=== PATIENT | female | born 1965 | race Caucasian/White ===

== ENCOUNTER 2017-04-17 22:39 | Emergency (ER) | payer OTHER ==
[~2017-04-17] VITALS: Ht 157.5 cm; Wt 89.0 kg
[~2017-04-17 22:39] MED LIST: CYCL5TAB PO
[2017-04-17 22:44] VITALS: BP 130/66; PULSE 83; RESP 18; TEMP 98.4; O2SAT 96
[2017-04-17 23:15] LABS: BILIRUBIN, URINE NEG (NEG); BLOOD, URINE NEG (NEG); GLUCOSE,URINE NEG (NEG); KETONE, URINE NEG (NEG); NITRITE,URINE NEG (NEG); PH, URINE 5.5 (5.0-8.5); URINE COLOR YELLOW (YELLW/STRAW); URINE LEUKOCYTE ESTERASE TRACE (NEG)
--- NOTE | 2017-04-17 23:29 | RADRPT ---
EXAM DATE/TIME: 04/17/2017 23:03 [place] COMPARISON: No previous studies available for comparison. INDICATIONS : Right flank and posterior, inferior rib pain post fall. MEDICAL HISTORY : None. SURGICAL HISTORY : None. ENCOUNTER: Initial ACUITY: 1 day PAIN SCORE: 10/10 LOCATION: Right chest FINDINGS: Multiple views of the right ribs were performed. There is no evidence of displaced fracture. No ladarius tructive lesions or areas of periosteal thickening are seen. Expiratory view of the chest is negativ e for pneumothorax. The mediastinal structures are midline. CONCLUSION: Negative right rib series. Kory Naylor MD on April 17, 2017 at 23:28 Board Certified Radiologist. This report was verified electronically.
[2017-04-17 23:33] LABS: SQUAMOUS EPITHELIAL CELL URINE 0-5 /hpf (0-5)
[2017-04-17 23:34] LABS: MUCUS URINE OCC /lpf (OCC)
[2017-04-17] MEDS ORDERED: INSU1INJ14 SQ (23:38)
[2017-04-17] MEDS ORDERED: METO-309 PO (23:38)
[2017-04-17] MEDS ORDERED: ASPI1CHW4 CHEW (23:38)
[2017-04-17] MEDS ORDERED: ATOR10TA15 PO (23:38)
[2017-04-17] MEDS ORDERED: HUMALOG SQ (23:38)
[2017-04-18] MEDS ORDERED: TRAM50 PO (00:09)
--- NOTE | 2017-04-18 00:09 | PD ---
HPI . Fall Chief Complaint: Fall Time Seen by Provider: 22:50 Travel History International Travel<30 days: No Contact w/Intl Traveler<30days: No Traveled to known affect area: No History of Present Illness HPI 51-year-old female status post fall, patient was standing on top of the chair with wheels trying to change a light bulb, chair fell out, patient lying on her right side. Patient also said she hit her head against a door but this is a very minor injury and is declining CAT scan at this time. Patient had no loss of consciousness no visual changes no neck pain or stiffness. Patient notes right lateral chest wall pain is slightly worse with palpation and deep breath. Patient has no shortness of breath. No hemoptysis. Patient denies hematuria. No weakness numbness tingling, ambulate easily. PFSH Past Medical History Narrative Medical Past medical history reviewed High Cholesterol: Yes Diabetes: Yes Patient Takes Glucophage: No Tetanus Vaccination: > 5 Years Influenza Vaccination: Yes ?: Not Menopausal: Yes Past Surgical History Surgical History: No Previous Surgery Social History Alcohol Use: Yes (WEEKENDS) Tobacco Use: No Substance Use: No Allergies-Medications (Allergen,Severity, Reaction): Coded Allergies: ibuprofen (Unverified Allergy, Mild, 04/17/17) Reported Meds & Prescriptions Reported Meds & Active Scripts Active Reported Tresiba Flextouch Pen Inj (Insulin Degludec Inj) 300 unit/3 ML Pen 1 Units SQ TID Aspirin 81 Low Dose (Aspirin) 81 Mg Chew 81 Mg CHEW DAILY Humalog Inj (Insulin Human Lispro) 1,000 Unit/10 Ml Vial 1-9 Units SQ ACHS Max dose at bedtime:( )units; sugars< 70,(0)units; sugars 150-199,(1)unit; sugars 200-249,(3)units; sugars 250-299,(5)units; sugars 300-349,(7)units; sugars more than 349,(9)units. Lopressor (Metoprolol Tartrate) 50 Mg Tab 25 Mg PO DAILY Atorvastatin (Atorvastatin Calcium) 10 Mg Tab 10 Mg PO HS Narrative Medication Allergies and medications reviewed Review of Systems Except as stated in HPI: all other systems reviewed are Neg General / Constitutional: No: Fever Eyes: No: Visual changes HENT: No: Headaches Cardiovascular: Positive: Chest Pain or Discomfort Respiratory: No: Shortness of Breath Gastrointestinal: No: Abdominal Pain Genitourinary: No: Dysuria Musculoskeletal: No: Pain Skin: No Rash Neurologic: No: Weakness Psychiatric: No: Depression Endocrine: No: Polydipsia Hematologic/Lymphatic: No: Easy Bruising Physical Exam Narrative GENERAL: Awake and alert and oriented 3 no acute distress vital signs afebrile normal and stable SKIN: Warm and dry. Color is normal diaphoresis and pallor HEAD: Atraumatic. Normocephalic. EYES: Pupils equal and round. No scleral icterus. No injection or drainage. ENT: No nasal bleeding or discharge. Mucous membranes pink and moist. NECK: Trachea midline. No JVD. Supple nontender full range of CARDIOVASCULAR: Regular rate and rhythm. S1-S2 no murmurs rubs gallops RESPIRATORY: No accessory muscle use. Clear to auscultation. Breath sounds equal bilaterally. Chest wall right sided mildly tender, no crepitus, no flail chest, no paradoxical movement. GASTROINTESTINAL: Abdomen soft, non-tender, nondistended. Hepatic and splenic margins not palpable. MUSCULOSKELETAL: Extremities without clubbing, cyanosis, or edema. No obvious deformities. NEUROLOGICAL: Awake and alert. No obvious cranial nerve deficits. Motor grossly within normal limits. Five out of 5 muscle strength in the arms and legs. Normal speech. PSYCHIATRIC: Appropriate mood and affect; insight and judgment normal. Data Data Last Documented VS Vital Signs Date Time Temp Pulse Resp B/P (MAP) Pulse Ox O2 Delivery O2 Flow Rate FiO2 04/17/17 23:00 Room Air 04/17/17 22:44 98.4 83 18 130/66 (87) 96 Orders Orders Ribs, Uni (W/Exp Cxr-Min 3vw) (04/17/17 ) Urinalysis - C+S If Indicated (04/17/17 23:00) Tramadol (Ultram) (04/18/17 00:15) Labs Laboratory Tests Test 04/17/17 23:03 Urine Collection Type CLEAN CATCH Urine Color YELLOW Urine Turbidity CLEAR Urine pH 5.5 Urine Specific [place] 1.010 Urine Protein NEG mg/dL Urine Glucose (UA) NEG mg/dL Urine Ketones NEG mg/dL Urine Occult Blood NEG Urine Nitrite NEG Urine Bilirubin NEG Urine Urobilinogen 0.2 MG/DL Urine Leukocyte Esterase TRACE Urine WBC 3-5 /hpf Urine Squamous Epithelial Cells 0-5 /hpf Urine Mucus OCC /lpf Microscopic Urinalysis Comment CULT NOT INDICATED MDM Medical Decision Making Medical Screen Exam Complete: Yes Emergency Medical Condition: Yes Medical Record Reviewed: Yes Differential Diagnosis Chest wall contusion, fractured ribs, pneumothorax Narrative Course Rib series with chest x-ray negative. No fractures no pneumothorax. Urinalysis negative for hematuria. Discharge Diagnosis Primary Impression: Chest wall contusion Qualified Codes: S20.211A - Contusion of right front wall of thorax, initial encounter Patient Instructions: Chest Wall Pain (GEN), General Instructions Additional Instructions: Chest wall contusion. Ice affected areas, Ultram 50 mg every 8 hours as needed for pain. Follow-up with your doctor. Return for worsening Scripts Tramadol (Ultram) 50 Mg Tab 50 MG PO Q8H Y for PAIN, #10 TAB 0 Refills Prov: Andrew Garcia MD 04/18/17 Disposition: 01 DISCHARGE HOME Condition: Stable Andrew Garcia MD Apr 18, 2017 00:09
[2017-04-18] MEDS ORDERED: traMADol HCL 50 MG TAB PO ONE (00:15)
== END 2017-04-18 00:48 | disposition home or self-care (01) ==
LOC: PHED 22:39
DX: S20.211A Contusion of right front wall of thorax, initial encounter (principal); W07.XXXA Fall from chair, initial encounter; E78.00 Pure hypercholesterolemia, unspecified; E11.9 Type 2 diabetes mellitus without complications
CPT/HCPCS: 71101; 81001; 99284